=== PATIENT | female | born 1995 | race Caucasian/White ===

== ENCOUNTER → 2018-03-04 14:09 | Outpatient (REF) | payer OTHER, SELFPAY ==
--- NOTE | 2018-03-04 13:45 | PAPFT_PTH ---
PATIENT: ONEIL BAKER LOC: [facility] U#:[id number] AGE/SX: 30/F ROOM: RE03/04/[address]: PETRA Castillo : 1995 BED: DIS: SPEC #: [id number] RECD: 03/04/18 17:54 STATUS: KAROL STERLING #: [id number] JACKELYN: 03/04/18 13:[address]: Susie Stuart [facility] Cytology RECD BY: Naila Swan ENTERED: 03/04/18 17:55 SP TYPE: PAPFT OTHR DR: Kailey Pinedo MD Tissues: 1 - CX/ENDOCX FOR PAP SMEARS Procedures: PAP THIN PREP/[facility] Screening Comments: [id number]
[2018-03-05 14:53] LABS: Chlamydia Result Negative; GC Result Negative; Specimen Description CERVIX
== END ==
LOC: LBN 14:09
PROVIDERS: PCP Pediatrics; Visit Provider Nurse Practitioner Family
DX: Z11.3 Encounter for screening for infections with a predominantly sexual mode of transmission (principal); Z12.4 Encounter for screening for malignant neoplasm of cervix
CPT/HCPCS: 87491; 87591; 88142

== ENCOUNTER 2018-04-05 12:38 | Outpatient (REF) | payer OTHER, SELFPAY ==
--- NOTE | 2018-04-05 09:00 | CER_PTH ---
PATIENT: ONEIL BAKER LOC: [facility] U#:[id number] AGE/SX: 23/F ROOM: RE04/05/[address]: Kailey Diego : 1995 BED: DIS: 04/05/2018 SPEC #: [id number] RECD: 04/05/18 12:49 STATUS: KAROL REWill #: [id number] JACKELYN: 04/05/18 09:[address]: Kailey Diego DEPT: Surgical Specimen RECD BY: Naila Swan ENTERED: 04/05/18 12:50 SP TYPE: CER OTHR DR: Kailey Pinedo MD Tissues: 1 - CERVICAL BIOPSY 2 - CERVICAL BIOPSY 3 - VAGINAL BIOPSY Procedures: GROSS AND MICRO LEVEL 4 Comments: [id number]
== END 2018-04-05 12:58 ==
LOC: LBN 12:38
PROVIDERS: PCP Pediatrics; Visit Provider Obstetrics & Gynecology
DX: N88.8 Other specified noninflammatory disorders of cervix uteri (principal); N89.8 Other specified noninflammatory disorders of vagina; R87.612 Low grade squamous intraepithelial lesion on cytologic smear of cervix (LGSIL)
CPT/HCPCS: 88305

== ENCOUNTER 2019-03-06 15:27 | Outpatient (REF) | payer MEDICAID, SELFPAY ==
[2019-03-07 14:51] LABS: GC Result Negative; Specimen Description CERVIX
[2019-03-07 15:12] LABS: Chlamydia Result Positive
== END 2019-03-06 15:47 ==
LOC: LBN 15:27
PROVIDERS: PCP Pediatrics; Visit Provider Obstetrics & Gynecology Gynecology
DX: Z11.3 Encounter for screening for infections with a predominantly sexual mode of transmission (principal)
CPT/HCPCS: 87491; 87591

== ENCOUNTER 2019-06-11 10:58 | Outpatient (REF) | payer MEDICAID, SELFPAY ==
[2019-06-13 15:31] LABS: Chlamydia Result Positive (Negative); GC Result Negative (Negative)
== END 2019-06-11 11:18 ==
LOC: LBN 10:58
PROVIDERS: Visit Provider Obstetrics & Gynecology Gynecology
DX: Z11.3 Encounter for screening for infections with a predominantly sexual mode of transmission (principal); Z86.19 Personal history of other infectious and parasitic diseases
CPT/HCPCS: 87491; 87591

== ENCOUNTER 2019-06-13 01:50 | Outpatient (CLI) | payer MEDICAID, SELFPAY ==
--- NOTE | 2019-06-13 10:59 | DI.US_ITS ---
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 COMPARISON: RIGHT BREAST ULTRASOUND from 10/13/2013 FINDINGS: Today's breast ultrasound was obtained to follow previously noted right breast mass. The examination is compared with the previous ultrasound of September 2013. Previous examination showed a mildly hetero geneous, well-circumscribed, solid, horizontally oriented mass in the 9 o'clock position in the right breast measuring 48 x 43 x 30 millimeters in diameter. On today's examination, the previously described mass has a very similar appearance and remains well- circumscribed with slight internal vascular flow. The mass measures 37 x 33 x 17 millimeters in diam eter on today's examination. IMPRESSION: Interval decrease in size of right breast mass since examination of 2013. No new mass identified. T he appearance remains consistent with benign process, statistically most likely fibroadenoma.
== END 2019-06-13 02:10 ==
PROVIDERS: Visit Provider Obstetrics & Gynecology Gynecology
DX: D24.1 Benign neoplasm of right breast (principal); N63.11 Unspecified lump in the right breast, upper outer quadrant
CPT/HCPCS: 76642

== ENCOUNTER 2019-07-23 11:11 | Outpatient (REF) | payer MEDICAID, SELFPAY ==
--- NOTE | 2019-07-23 09:40 | PAPFT_PTH ---
PATIENT: ONEIL BAKER LOC: [facility] U#:[id number] AGE/SX: 24/F ROOM: RE07/23/[address]: Margot Kong NP : 1995 BED: DIS: 07/23/2019 SPEC #: [id number] RECD: 07/23/19 12:55 STATUS: KAROL STERLING #: [id number] JACKELYN: 07/23/19 09:[address]: Margot Kong NP DEPT: [facility] Cytology RECD BY: Naila Swan ENTERED: 07/23/19 12:55 SP TYPE: PAPFT NILSA DR: None Tissues: 1 - CX/ENDOCX FOR PAP SMEARS Procedures: PAP THIN PREP/[facility] Screening Comments: [id number] (CHLAMYDIA/GC)
[2019-07-24 14:13] LABS: Chlamydia Result Negative (Negative); GC Result Negative (Negative)
== END 2019-07-23 11:31 ==
LOC: LBN 11:11
PROVIDERS: Visit Provider Nurse Practitioner Women's Health
DX: Z11.3 Encounter for screening for infections with a predominantly sexual mode of transmission (principal); Z12.4 Encounter for screening for malignant neoplasm of cervix
CPT/HCPCS: 87491; 87591; 88142

== ENCOUNTER 2019-11-12 09:27 | Outpatient (REF) | payer MEDICAID, SELFPAY ==
--- NOTE | 2019-11-12 09:30 | ENDO_PTH ---
PATIENT: ONEIL BAKER LOC: [facility] U#:[id number] AGE/SX: 24/F ROOM: RE11/12/[address]: Mariam Garibay : 1995 BED: DIS: 11/12/2019 SPEC #: [id number] RECD: 11/12/19 10:52 STATUS: KAROL STERLING #: [id number] JACKELYN: 11/12/19 09:[address]: Mariam Garibay DEPT: Surgical Specimen RECD BY: Stephen Martinez ENTERED: 11/12/19 10:54 SP TYPE: Endo OTHR DR: Servando Leung MD Tissues: 1 - ENDOCERVICAL BX/CURRETTE 2 - ENDOCERVICAL BX/CURRETTE 3 - ENDOCERVICAL BX/CURRETTE Procedures: GROSS AND MICRO LEVEL 4 Comments: [id number]
== END 2019-11-12 09:47 ==
LOC: LBN 09:27
PROVIDERS: PCP Pediatrics; Visit Provider Obstetrics & Gynecology Gynecology
DX: N87.0 Mild cervical dysplasia (principal); R87.610 Atypical squamous cells of undetermined significance on cytologic smear of cervix (ASC-US); R87.810 Cervical high risk human papillomavirus (HPV) DNA test positive
CPT/HCPCS: 88305

== ENCOUNTER 2020-02-17 20:39 | Outpatient (REF) | payer MEDICAID, SELFPAY ==
[2020-02-19 14:46] LABS: Chlamydia Result Negative (Negative); GC Result Negative (Negative)
== END 2020-02-17 20:59 ==
LOC: LBN 20:39
PROVIDERS: PCP Pediatrics; Visit Provider Nurse Practitioner Women's Health
DX: Z11.3 Encounter for screening for infections with a predominantly sexual mode of transmission (principal)
CPT/HCPCS: 87491; 87591

== ENCOUNTER 2020-02-19 02:27 | Outpatient (CLI) | payer MEDICAID, SELFPAY ==
[2020-02-20 09:14] LABS: Hepatitis B Surface Ag Negative (Negative)
[2020-02-20 09:54] LABS: Hepatitis C Ab w Rflx HCV PCR Negative (Negative)
[2020-02-20 10:14] LABS: HIV-1/2 Ag & Ab Screen Negative (Negative)
[2020-02-20 15:11] LABS: Syphilis Total Ab w/Reflex Nonreactive (Nonreactive)
== END 2020-02-19 02:47 ==
PROVIDERS: Visit Provider Nurse Practitioner Women's Health
DX: Z11.3 Encounter for screening for infections with a predominantly sexual mode of transmission (principal)
CPT/HCPCS: 36415; 86803; 87340; 87389; 86780